=== PATIENT | female | born 2000 | race Caucasian/White ===

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

== ENCOUNTER 2021-05-27 16:28 | Emergency (ER) | payer OTHER ==
[2021-05-27 16:32] VITALS: BP 120/79; PULSE 100; RESP 16; TEMP 97.8
--- NOTE | 2021-05-27 17:11 | ED ---
ENT HPI - General Chief complaint: ENT Stated complaint: Ear infection Time Seen by Provider: 05/27/21 16:37 Source: patient, RN notes reviewed Mode of arrival: ambulatory Limitations: no limitations - History of Present Illness Initial comments: Patient is a 20-year-old female that presents to the emergency department complaining of right ear pain. She notes that is been going on for the last day or 2. She notes that her hearing sounds muffled. She notes it sounds like there is water behind her ear. She denied any other issues or complaints. She did note that she tried using a Q-tip to see if there is anything in there. She denied any external ear pain pain on palpation of the tragus or auricle. She was otherwise a well-appearing 20-year-old female in no apparent distress or pain. She denied any chest pain shortness of breath headache nausea vomiting diarrhea constipation fever fatigue chills. - Related Data Home Medications Medication Instructions Recorded Confirmed Lisdexamfetamine Dimesylate 50 mg PO DAILY 10/22/17 10/22/17 [Vyvanse] Previous Rx's Medication Instructions Recorded Amoxicillin 875 mg PO Q12HR #14 tablet 05/27/21 Allergies Allergy/AdvReac Type Severity Reaction Status Date / Time No Known Allergies Allergy Verified 05/27/21 16:29 Review of Systems ROS Statement: Those systems with pertinent positive or pertinent negative responses have been documented in the HPI. ROS Other: All systems not noted in ROS Statement are negative. Past Medical History Past Medical History: No Reported History History of Any Multi-Drug Resistant Organisms: None Reported Past Surgical History: No Surgical Hx Reported Past Psychological History: ADD/ADHD, Anxiety Smoking Status: Current every day smoker Past Alcohol Use History: None Reported Past Drug Use History: Marijuana General Exam Limitations: no limitations General appearance: alert, in no apparent distress Head exam: Present: atraumatic, normocephalic, normal inspection Eye exam: Present: normal appearance, PERRL, EOMI. Absent: scleral icterus, conjunctival injection, periorbital swelling Expanded Ear exam: Present: normal external inspection. Absent: auricular hematoma, auricular trauma TM/Canal exam: Erythema: Right TM Neck exam: Present: normal inspection Respiratory exam: Present: normal lung sounds bilaterally. Absent: respiratory distress, wheezes, rales, rhonchi, stridor Cardiovascular Exam: Present: regular rate, normal rhythm, normal heart sounds. Absent: systolic murmur, diastolic murmur, rubs, gallop, clicks Extremities exam: Present: normal inspection, full ROM, normal capillary refill. Absent: tenderness, pedal edema, joint swelling, calf tenderness Neurological exam: Present: alert, oriented X3 Psychiatric exam: Present: normal affect, normal mood Skin exam: Present: warm, dry, intact, normal color. Absent: rash Course Vital Signs 05/27/21 16:29 Temperature 97.8 F Pulse Rate 100 Respiratory 16 Rate Blood Pressure 120/79 O2 Sat by Pulse 95 Oximetry Medical Decision Making - Medical Decision Making 20-year-old female complaining of right ear pain, muffled hearing. Upon physical exam right tympanic membrane appeared erythematous, was intact. No tenderness or pain on palpation of auricle or tragus. Given clinical symptoms patient most likely has otitis media and will be sent antibiotics to her pharmacy. Case discussed with Dr. Wagner, patient can discharge home with follow-up to primary care. Disposition Clinical Impression: Otitis media Disposition: HOME SELF-CARE Condition: Stable Instructions (If sedation given, give patient instructions): Earache (ED) Additional Instructions: Please return to the Emergency Department if symptoms worsen or any other concerns. Follow-up with primary care in the next 1-2 days. Take antibiotics as prescribed until complete. Take Motrin as needed for pain. Avoid using Q-tips inside the ear. As it can cause irritation, ringing in the ears, and significant pain. Prescriptions: Amoxicillin 875 mg PO Q12HR #14 tablet Is patient prescribed a controlled substance at d/c from ED?: No Referrals: Alex Recinos MD [Primary Care Provider] - 1-2 days Time of Disposition: 17:11
== END 2021-05-27 17:27 | disposition home or self-care (01) ==
LOC: EC 16:28
DX: H66.91 Otitis media, unspecified, right ear (principal); F90.9 Attention-deficit hyperactivity disorder, unspecified type; F41.9 Anxiety disorder, unspecified; F12.90 Cannabis use, unspecified, uncomplicated; F17.200 Nicotine dependence, unspecified, uncomplicated; Z79.899 Other long term (current) drug therapy
CPT/HCPCS: 99282

== ENCOUNTER 2023-03-28 09:41 | Inpatient (IN) | payer MEDICAID, OTHER ==
[2023-03-28] MEDS ORDERED: ONDANSETRON ODT 4 MG TAB PO STA (10:24)
[2023-03-28] MEDS ORDERED: BACITRACIN OINT 1 EACH PACKET TOPICAL ONE (10:24)
--- NOTE | 2023-03-28 10:35 | ED ---
Psych HPI - General Chief Complaint: Psychiatric Symptoms Stated Complaint: mental health Time Seen by Provider: 03/28/23 10:03 Source: patient, RN notes reviewed Mode of arrival: ambulatory Limitations: no limitations - History of Present Illness Initial Comments: This is a 22-year-old female who presents to the emergency department for psychiatric evaluation. States that last night she became intoxicated and harmed herself by cutting her forearms and legs. She did this once before when she was 16 as well. States that she did not want to , but was just very upset. Because she was intoxicated, she does not remember this event very well. She does struggle with alcohol use but denies any drug use. Reports a long- standing history of depression, but states that she's always been afraid to get help. She is concerned about becoming addicted to medication and feels like she can't open up about her emotions. She's never taken any psychiatric medication to her knowledge. Over the last couple of days, her depression has gotten much worse. States that at this point she just wants to get help. She also has a young son, and wants to make sure she is doing right by him. She is not currently feeling suicidal or homicidal, but again just wants to get the help that she needs so that she can feel better. Denies any fevers, chills, sore throat, cough, dyspnea, chest pain, palpitations, abdominal pain, nausea, vomiting, diarrhea, back pain, or headaches. MD Complaint: feels depressed - Related Data Home Medications Medication Instructions Recorded Confirmed Lisdexamfetamine Dimesylate 50 mg PO DAILY PRN 10/22/17 03/28/23 [Vyvanse] Allergies Allergy/AdvReac Type Severity Reaction Status Date / Time No Known Allergies Allergy Verified 03/28/23 12:19 Review of Systems ROS Statement: Those systems with pertinent positive or pertinent negative responses have been documented in the HPI. ROS Other: All systems not noted in ROS Statement are negative. Past Medical History Past Medical History: No Reported History History of Any Multi-Drug Resistant Organisms: None Reported Past Surgical History: No Surgical Hx Reported Past Psychological History: ADD/ADHD, Anxiety Smoking Status: Vaper Past Alcohol Use History: Daily Past Drug Use History: Marijuana General Exam Limitations: no limitations General appearance: alert, in no apparent distress Head exam: Present: atraumatic, normocephalic, normal inspection Respiratory exam: Present: normal lung sounds bilaterally. Absent: respiratory distress, wheezes, rales, rhonchi, stridor Cardiovascular Exam: Present: regular rate, normal rhythm, normal heart sounds. Absent: systolic murmur, diastolic murmur, rubs, gallop, clicks Neurological exam: Present: alert, oriented X3, CN II-XII intact Psychiatric exam: Present: depressed. Absent: homicidal ideation, suicidal ideation Skin exam: Present: other (Multiple superficial horizontal lacerations to the dorsal aspect of the bilateral forearms and anterior aspect of the bilateral thighs. No active bleeding.) Course Vital Signs 03/28/23 09:54 Temperature 98.4 F Pulse Rate 105 H Respiratory 18 Rate Blood Pressure 166/78 O2 Sat by Pulse 95 Oximetry Medical Decision Making - Medical Decision Making This is a 22-year-old female who presents to the emergency department for psychiatric evaluation. Was pt. sent in by a medical professional or institution? @ -No Did you speak to anyone other than the patient for history? @ -No Did you review nursing and triage notes? @ -Yes, and I agree, it is accurate with regards to the patient's symptoms. Were old charts reviewed? @ -No Differential Diagnosis? @ -Differential Mental Health Depression, anxiety, bipolar, psychosis, schizophrenia, borderline personality, situational depression, adjustment disorder, behavioral disorder, brain tumor, malingering, substance abuse, encephalopathy, medication reaction, dementia, hypothyroidism, degenerative neurologic disorder, lupus.... This is not meant to be all-inclusive list EKG interpreted by me (3pts min.)? @ -Not obtained X-rays interpreted by me (1pt min.)? @ -Not obtained CT interpreted by me (1pt min.)? @ -Not obtained U/S interpreted by me (1pt. min.)? @ -Not obtained What testing was considered but not performed? (CT, X-rays, U/S, labs)? Why? @ -None What meds were considered but not given? Why? @ -None Did you discuss the management of the patient with other professionals? @ -Yes, EPS who states that the patient will sign herself in for psychiatric care. Did you reconcile home meds? @ -No Was smoking cessation discussed for >3mins.? @ -No Was critical care preformed (if so, how long)? @ -No Were there social determinants of health that impacted care today? How? (Homelessness, low income, unemployed, alcoholism, drug addiction, transportation, low edu. Level, literacy, decrease access to med. care, skilled nursing, rehab)? @ -Alcoholism, contributing to the patient's self-harm, depression, and overall worsening all status. Was there de-escalation of care discussed even if they declined? (Discuss DNR or withdrawal of care, Hospice)? @ -No What co-morbidities impacted this encounter? (DM, HTN, Smoking, COPD, CAD, Cancer, CVA, Hep., AIDS, mental health diagnosis, sleep apnea, morbid obesity)? @ -Alcoholism, depression Was patient admitted / discharged? @ -Admitted. Patient's BAT was 0.01, making her clear for EPS evaluation. The wounds on her arms and legs were superficial and no repair was required. Bacitracin was applied and the wounds were bandaged per the patient's request. ODT Zofran was administered, as the patient was experiencing some nausea. EPS evaluated the patient, and the patient requested admission for further psychiatric care and she signed herself in voluntarily. Patient admitted to [facility] for further psychiatric management. Undiagnosed new problem with uncertain prognosis? @ -None Drug Therapy requiring intensive monitoring for toxicity (Heparin, Nitro, Insulin, Cardizem)? @ -None Were any procedures done? @ -None Diagnosis/symptom? @ -Depression Acute, or Chronic, or Acute on Chronic? @ -Chronic Uncomplicated (without systemic symptoms) or Complicated (systemic symptoms)? @ -Complicated Side effects of treatment? @ -None Exacerbation, Progression, or Severe Exacerbation] @ -Progression Poses a threat to life or bodily function? @ -Yes This case was discussed in detail with the attending ED physician, Dr. Mcdermott. Presentation, findings, and treatment plan discussed in detail as well. - Lab Data Lab Results 03/28/23 Range/Units 12:33 Coronavirus (PCR) Not Detected (Not Detectd) Disposition Clinical Impression: Depression, Self-harming behavior Disposition: ADMITTED IP TO THIS HOSP Referrals: None,Stated [Primary Care Provider] - 1-2 days
[2023-03-28] MEDS ORDERED: DIPH,PERTUS(ACELL)TETVAC-LF 0.5 ML VIAL IM ONE (12:09)
[2023-03-28] MEDS ORDERED: MAGNESIUM HYDROXIDE 2,400 MG/10 ML CUP PO PRN (13:49)
[2023-03-28] MEDS ORDERED: MAG HYDROX/AL HYDROX/SIMETH 30 ML CUP PO PRN (13:49)
[2023-03-28] MEDS ORDERED: HALOPERIDOL LACTATE 5 MG/ML 1 ML VIAL IM PRN (13:52)
[2023-03-28] MEDS ORDERED: LORazepam 2 MG/ML INJ IM PRN (13:52)
[2023-03-28] MEDS ORDERED: haloperidoL 1 MG TAB PO PRN (13:52)
[2023-03-28 15:43] LABS: Appearance,Urine Clear (Clear); Bilirubin,Urine Negative (Negative); Blood,Urine Large (Negative); Color,Urine Yellow; Glucose,Urine (UA) Negative (Negative); Ketones,Urine Negative (Negative); Leukocyte Esterase,Urine Negative (Negative); Mucus,Urine Rare /hpf; Nitrite,Urine Negative (Negative); PH, Urine 8.5 (5.0-8.0); Protein,Urine Trace (Negative); RBC,Urine 14 /hpf (0-5); Squamous Epithelial Cell,Urine 1 /hpf (0-4); WBC,Urine 1 /hpf (0-5)
[2023-03-28 15:54] LABS: Amphetamine Screen,Urine Not Detected (NotDetected); Barbiturate Screen,Urine Not Detected (NotDetected); Benzodiazepines Screen,Urine Not Detected (NotDetected); Cocaine Screen,Urine Not Detected (NotDetected); Methadone Screen, Urine Not Detected (NotDetected); Opiate Screen,Urine Not Detected (NotDetected); Oxycodone Screen, Urine Not Detected (NotDetected); Phencyclidine Screen,Urine Not Detected (NotDetected); Tricyclic Antidepressant,Urine Not Detected (NotDetected); Urn Cannabinoid Scrn Detected (NotDetected)
[2023-03-28] MEDS: NICOTINE GUM (POLACRILEX) 2 MG GUM BUCCAL PRN ×2 (18:45→22:26)
[2023-03-28] MEDS: ACETAMINOPHEN TAB 325 MG TAB PO PRN (18:48)
[2023-03-29] MEDS: LORazepam 1 MG TAB PO PRN ×2 (02:54→23:16)
[2023-03-29] MEDS: NICOTINE GUM (POLACRILEX) 2 MG GUM BUCCAL PRN ×3 (09:23→20:28)
[2023-03-29 09:41] LABS: Basophils % (A) 0 %; Eosinophils # (A) 0.1 k/uL (0-0.7); Eosinophils % (A) 1 %; HCT 43.8 % (34.0-46.0); HGB 14.9 gm/dL (11.4-16.0); Lymphocytes # (A) 2.1 k/uL (1.0-4.8); Lymphocytes % (A) 27 %; MCH 31.1 pg (25.0-35.0); MCV 91.4 fL (80.0-100.0); Mean Platelet Volume 7.1; Monocytes # (A) 0.4 k/uL (0-1.0); Monocytes % (A) 5 %; Neutrophils # (A) 5.4 k/uL (1.3-7.7); Neutrophils % (A) 67 %; Platelet Count 278 k/uL (150-450); RBC 4.79 m/uL (3.80-5.40); RDW 12.4 % (11.5-15.5)
[2023-03-29 09:50] LABS: ALT 36 U/L (4-34); AST 32 U/L (14-36); African American GFR (CKD) >90 (>60 ml/min/1.73 sqM); Albumin 4.4 g/dL (3.5-5.0); Alkaline Phosphatase 94 U/L (38-126); Anion Gap 11 mmol/L; Blood Urea Nitrogen 13 mg/dL (7-17); Calcium 9.1 mg/dL (8.4-10.2); Carbon Dioxide 25 mmol/L (22-30); Chloride 103 mmol/L (98-107); Glucose 91 mg/dL (74-99); Non-African American GFR(CKD) >90 (>60 ml/min/1.73 sqM); Potassium 3.9 mmol/L (3.5-5.1); Sodium 139 mmol/L (137-145); Total Bilirubin 0.8 mg/dL (0.2-1.3); Total Protein 7.2 g/dL (6.3-8.2)
[2023-03-29] MEDS ORDERED: SERTRALINE 50 MG TAB PO STA (14:33)
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
[2023-03-29] MEDS: ACETAMINOPHEN TAB 325 MG TAB PO PRN (14:40)
[2023-03-29] MEDS: cloNIDine HCL 0.1 MG TAB PO SCH (21:49)
[2023-03-30] MEDS: SERTRALINE 50 MG TAB PO SCH (09:30)
[2023-03-30] MEDS: cloNIDine HCL 0.1 MG TAB PO SCH ×2 (09:30→22:44)
[2023-03-30] MEDS: NICOTINE GUM (POLACRILEX) 2 MG GUM BUCCAL PRN ×3 (09:32→23:01)
--- NOTE | 2023-03-30 09:50 | P.MDCNMH ---
History of Present Illness H&P Date: 03/29/23 Chief Complaint: Depression Patient is a 22-year-old female with a known history of ADD/ADHD, anxiety, daily taper use, marijuana use presents to ER for psychiatric evaluation. Patient has social ideation and harm herself by cutting her forearm and legs. Patient felt very depressed but didn't want to . Patient was intoxicated on admission. Patient does have history of depression. denied taking psychiatric medications previously. She wanted to get help and came to ER for evaluation. Otherwise denied any complaints of chest pain or shortness of breath. No nausea vomiting abdominal pain and diarrhea. No cough or sputum production. No recent illnesses. Laboratory data showed WBC 8.03 and 14.9 and platelets 278 sodium 139 potassium 3.923 bicarb is 25 BUN 13 and creatinine 0.6) blood sugar is 91. Urinalysis is negative for infection. Her UDS is positive for marijuana. Review of Systems Constitutional: Patient denies any fever or chills . No generalized weakness or weight loss. Abdomen: Patient denied nausea vomiting and diarrhea and abdominal pain. Cardiovascular: Patient denies any chest pain or short of breath no palpitations. Respiratory: patient denied any cough is from production. No shortness of breath Neurologic: Patient denied any numbness or tingling headache. Musculoskeletal: Patient denies any complaints of joint swelling or deformity. Skin: Negative Psychiatric: Negative Endocrine: No heat or cold intolerance. No recent weight gain. Genitourinary: No dysuria or hematuria. All other 14 point ROS negative except the above Past Medical History Past Medical History: No Reported History History of Any Multi-Drug Resistant Organisms: None Reported Past Surgical History: No Surgical Hx Reported Past Anesthesia/Blood Transfusion Reactions: No Reported Reaction Past Psychological History: ADD/ADHD, Anxiety Smoking Status: Vaper Past Alcohol Use History: Daily Past Drug Use History: Marijuana Medications and Allergies Home Medications Medication Instructions Recorded Confirmed Type Lisdexamfetamine Dimesylate 50 mg PO DAILY PRN 10/22/17 03/28/23 History [Vyvanse] Allergies Allergy/AdvReac Type Severity Reaction Status Date / Time No Known Allergies Allergy Verified 03/28/23 15:06 Physical Exam Vitals: Vital Signs Temp Pulse Resp BP Pulse Ox 03/29/23 05:23 98.6 F 64 16 139/79 98 03/28/23 14:55 97.8 F 16 132/61 95 PHYSICAL EXAMINATION: Patient is lying in the bed comfortably, no acute distress, awake alert and oriented.. HEENT: Normocephalic. Neck is supple. Pupils reactive. Nostrils clear. Oral cavity is moist. Neck reveals no JVD, carotid bruits, or thyromegaly. CHEST EXAMINATION: Trachea is central. Symmetrical expansion. Lung thompson clear to auscultation and percussion. CARDIAC: Normal S1, S2 with no gallops. No murmurs ABDOMEN: Soft. Bowel sounds normal. No organomegaly. No abdominal bruits. Extremities: reveal no edema. No clubbing or cyanosis Neurologically awake, alert, oriented x3 with well-coordinated movements. No focal deficits noted Skin: No rash or skin lesions. Psychiatric: Coperative. Nonsuicidal Musculoskeletal: No joint swelling or deformity. Normal range of motion. Cranial Nerve Examination - Cranial Nerves Cranial Nerve I- Olfactory: Intact Cranial Nerve II- Optic: Intact Cranial Nerve III- Oculomotor: Intact Cranial Nerve IV- Trochlear: Intact Cranial Nerve V- Trigeminal: Intact Cranial Nerve - Abducens: Intact Cranial Nerve VII- Facial: Intact Cranial Nerve VIII- Auditory: Intact Cranial Nerve IX- Glossopharyngeal: Intact Cranial Nerve X- Vagus: Intact Cranial Nerve XI- Accessory: Intact Cranial Nerve XII- Hypoglossal: Intact Results CBC & Chem 7: 03/29/23 09:01 03/29/23 09:01 Labs: Abnormal Lab Results - Last 24 Hours (Table) 03/28/23 03/29/23 Range/Units 12:08 09:01 ALT 36 H (4-34) U/L Urine pH 8.5 H (5.0-8.0) Urine Protein Trace H (Negative) Urine Blood Large H (Negative) Urine RBC 14 H (0-5) /hpf Urine Mucus Rare H (None) /hpf U Marijuana (THC) Screen Detected H (NotDetected) Assessment and Plan Assessment: Major depression with suicidal ideation. ADD/ADHD Daily use of Vapor Occasional marijuana use DVT prophylaxis. Ambulation neck for next and plan: Plan: Patient will be continued on current psychiatric medications and treatment plan. Laboratory data reviewed. We'll continue with current management. Further recommendations based on the clinical course. Next and Thank you for your consult.
[2023-03-31] MEDS: LORazepam 1 MG TAB PO PRN (01:12)
[2023-03-31 01:15] VITALS: RESP 17; TEMP 97.9
[2023-03-31] MEDS: SERTRALINE 50 MG TAB PO SCH (08:43)
[2023-03-31] MEDS: cloNIDine HCL 0.1 MG TAB PO SCH ×2 (08:43→23:18)
[2023-03-31] MEDS: NICOTINE GUM (POLACRILEX) 2 MG GUM BUCCAL PRN ×2 (08:43→12:47)
[2023-03-31 08:45] VITALS: BP 116/64; PULSE 64
[2023-03-31] MEDS: BACITRACIN OINT 1 EACH PACKET TOPICAL SCH ×2 (12:07→23:19)
[2023-03-31] MEDS ORDERED: traZODone HCL 50 MG TAB PO PRN (14:44)
--- NOTE | 2023-03-31 19:00 | P.PN ---
Progress Note - Text Progress Note Date: 03/30/23 Interval history: Patient was seen near the nurse's station and was irritable and dismissive on attempt to assess her. She reports she wants to go home, doesn't need to be here because "nothing is helping". She complains of feeling tired from the Librium and we discussed this will be discontinued. At this time patient denies any suicidal or homicidal ideation, intent or plan. Denies any auditory or visual hallucinations. Patient denies any side effects from the medications and has been compliant with meds. Vitals reviewed and are stable. No physical signs of alcohol withdrawal. Mental status exam: General Appearance: Patient appears to be stated age, hair dyed red. Behavior: No agitated behavior. Patient is calm and directable. Speech: Patient's speech is fluent and non-pressured. Mood/Affect: Mood is irritable, affect is congruent and constricted. Suicidality/Homicidality: Patient denies having any suicidal or homicidal ideation intent or plan. Perceptions: Patient denies any auditory or visual hallucinations. Though content/process: There is no evidence of any delusional thought content and thought process is linear and goal-directed. Memory and concentration: AOX3, grossly intact for the purposes of this session Judgment and insight: improving mildly Assessment/Plan: Continue with current diagnosis. Patient continues to meet criteria for inpatient psychiatric admission for symptom stabilization and safety. Discontinue Librium. Monitor for medication compliance and for any psychotropic medication side effects. Will continue to monitor ongoing response to treatment. Encouraged participation in milieu.
--- NOTE | 2023-03-31 19:06 | P.PN ---
Progress Note - Text Progress Note Date: 03/31/23 Interval history: Patient was seen socializing with peers in the [facility] She reports feeling less tired today since the Librium (she calls it [place]) has been stopped. She continues to be somewhat irritable and feeling down. She reports difficulty falling asleep. At this time patient denies any suicidal or homicidal ideation, intent or plan. Denies any auditory or visual hallucinations. Patient denies any side effects from the medications and has been compliant with meds. Vitals reviewed and are stable. No physical signs of alcohol withdrawal. Mental status exam: General Appearance: Patient appears to be stated age, hair dyed red, has multiple superficial self-inflicted cuts on her right arm that are healing without redness or drainage. Behavior: No agitated behavior. Patient is calm and directable. Speech: Patient's speech is fluent, and non-pressured. Mood/Affect: Mood is irritable/down, affect is congruent and constricted. Suicidality/Homicidality: Patient denies having any suicidal or homicidal ideation intent or plan. Perceptions: Patient denies any auditory or visual hallucinations. Though content/process: There is no evidence of any delusional thought content and thought process is linear and goal-directed. Memory and concentration: AOX3, grossly intact for the purposes of this session Judgment and insight: improving mildly Assessment/Plan: Continue with current diagnosis. Patient continues to meet criteria for inpatient psychiatric admission for symptom stabilization and safety. Start Trazodone 25 mg QHS PRN for sleep. Increase Zoloft from 50 mg daily to 100 mg daily starting tomorrow for depression/anxiety. Monitor for medication compliance and for any psychotropic medication side effects. Will continue to monitor ongoing response to treatment. Encouraged participation in milieu.
[2023-04-01] MEDS: BACITRACIN OINT 1 EACH PACKET TOPICAL SCH (08:23)
[2023-04-01] MEDS: cloNIDine HCL 0.1 MG TAB PO SCH (08:23)
[2023-04-01] MEDS: NICOTINE GUM (POLACRILEX) 2 MG GUM BUCCAL PRN (08:40)
[2023-04-01] MEDS ORDERED: SERTRALINE 100 MG TAB PO SCH (09:00)
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
== END 2023-04-01 13:20 | disposition home or self-care (01) | DRG 751 ==
LOC: EC 09:41 → 3MHU 13:42
PROVIDERS: ADMIT Psychiatry & Neurology Psychiatry; ATTEND Psychiatry & Neurology Psychiatry
DX: F33.2 Major depressive disorder, recurrent severe without psychotic features (principal); F10.229 Alcohol dependence with intoxication, unspecified; F10.239 Alcohol dependence with withdrawal, unspecified; F43.10 Post-traumatic stress disorder, unspecified; G47.00 Insomnia, unspecified; S61.511A Laceration without foreign body of right wrist, initial encounter; S61.512A Laceration without foreign body of left wrist, initial encounter; X78.9XXA Intentional self-harm by unspecified sharp object, initial encounter; Z62.810 Personal history of physical and sexual abuse in childhood; Z79.899 Other long term (current) drug therapy; Z91.410 Personal history of adult physical and sexual abuse; Z20.822 Contact with and (suspected) exposure to COVID-19
CPT/HCPCS: 80053; 80306; 81001; 81025; 82075; 83036; 84443; 85025; 87635; 90471; 90715; 99285